=== PATIENT | male | born 1990 | race American Indian/Alaskan Native ===

== ENCOUNTER 2020-11-12 11:39 | Emergency (ER) | payer SELFPAY ==
[2020-11-12 12:39] VITALS: BP 126/85
--- NOTE | 2020-11-12 13:17 | Emergency Department Report ---
- General Chief Complaint: Upper Respiratory Infection Stated Complaint: SX OF SCARLET FEVER PUI?: No Time Seen by Provider: 11/12/20 12:45 Source: patient Mode of arrival: Ambulatory Limitations: No Limitations - History of Present Illness Initial Comments: Chief complaint: Sore throat, thought I had Covid HPI: This is a 30-year-old male with history of marijuana dependence who presents with sore throat for the past 2 days. His 2 children were recently diagnosed with scarlet fever. Given amoxicillin. He was tested recently for COVID-19 through his job with nasal swab and saliva. Most recent results received 2 days ago were negative. Mild fever mild headache now facial pressure. He denies difficulty with swallowing. Denies shortness of breath. He does have new cough. MD Complaint: fever, cough, sore throat, sinus pain -: Gradual, days(s) (2 days) Severity: moderate Consistency: constant Worsens With: other (Swallowing) Context: sick contacts (2 children diagnosed with scarlet fever) Associated Symptoms: fever, headache (Facial pressure), cough. denies: chills, myalgias, rhinorrhea, stiff neck, chest pain, shortness of breath, abdominal pain, nausea, vomiting ED Review of Systems ROS: Stated complaint: SX OF SCARLET FEVER Other details as noted in HPI Constitutional: chills, fever, malaise ENT: throat pain. denies: ear pain Respiratory: cough. denies: shortness of breath Cardiovascular: denies: chest pain Gastrointestinal: denies: abdominal pain, nausea, vomiting Musculoskeletal: denies: back pain Skin: denies: rash, lesions Neurological: headache ED Past Medical Hx - Past Medical History Previous Medical History?: Yes Hx Psychiatric Treatment: Yes (Anxiety and depression) - Family History Family history: hypertension - Social History Smoking Status: Current Every Day Smoker Substance Use Type: Marijuana ED Physical Exam - General Limitations: No Limitations General appearance: alert, in no apparent distress, other (Normal voice) - Head Head exam: Present: atraumatic, normocephalic - Eye Eye exam: Present: normal appearance - ENT ENT exam: Present: other (Erythematous edematous tonsils symmetric touching uvula) - Neck Neck exam: Present: normal inspection, full ROM - Respiratory Respiratory exam: Present: normal lung sounds bilaterally. Absent: respiratory distress, wheezes, rales, rhonchi, stridor - Cardiovascular Cardiovascular Exam: Present: regular rate, normal rhythm, normal heart sounds. Absent: systolic murmur, diastolic murmur, rubs, gallop - GI/Abdominal GI/Abdominal exam: Present: soft, normal bowel sounds. Absent: distended, tenderness, guarding, rebound - Rectal Rectal exam: Present: deferred - Extremities Exam Extremities exam: Present: normal inspection - Neurological Exam Neurological exam: Present: alert, oriented X3 - Psychiatric Psychiatric exam: Present: normal affect, normal mood - Skin Skin exam: Present: warm, dry, intact, normal color. Absent: rash ED Course Vital Signs 11/12/20 12:37 Temperature 97.4 F L Pulse Rate 70 Respiratory 16 Rate Blood Pressure 126/85 [Right] O2 Sat by Pulse 99 Oximetry ED Medical Decision Making - Lab Data Laboratory Results - last 24 hr 11/12/20 Unknown Group A Strep Rapid Positive A - Medical Decision Making Streptococcal pharyngitis confirmed by rapid strep test. Bicillin LA Decadron both given IM in emergency department Critical care attestation.: If time is entered above; I have spent that time in minutes in the direct care of this critically ill patient, excluding procedure time. ED Disposition Clinical Impression: Acute streptococcal pharyngitis Disposition: HOME / SELF CARE / HOMELESS Is pt being admited?: No Does the pt Need Aspirin: No Condition: Stable Instructions: Strep Throat, Adult Referrals: ANGELA MEJIAS MD [Staff Physician] - as needed Forms: Work/School Release Form(ED)
[2020-11-12] MEDS ORDERED: PENICILLIN G BENZATHINE 1.2 MILLION UNIT/2 ML INJ IM SCH (15:00)
[2020-11-12] MEDS ORDERED: dexAMETHasone 20 MG/5 ML VIAL IM SCH (15:00)
== END 2020-11-12 15:04 | disposition home or self-care (01) ==
LOC: ED 11:39
DX: J02.0 Streptococcal pharyngitis (principal); F41.8 Other specified anxiety disorders; F32.9 Major depressive disorder, single episode, unspecified; F17.290 Nicotine dependence, other tobacco product, uncomplicated
CPT/HCPCS: 87430; 96372; 99283; J0561; J1100